=== PATIENT | male | born 1970 | race African-American/Black ===

== ENCOUNTER 2018-11-16 20:49 | Emergency (ER) | payer OTHER ==
[~2018-11-16] VITALS: Ht 185.4 cm; Wt 86.2 kg
--- NOTE | 2018-11-16 21:35 | NUR ---
Patient discharged to home in stable conditon. Written and verbal after care instructions given. Patient verbalizes understanding of instructions.
[2018-11-16 21:42] VITALS: BP 114/78
== END 2018-11-16 21:50 | disposition home or self-care (01) ==
LOC: ER 20:49
DX: H60.92 Unspecified otitis externa, left ear (principal)
CPT/HCPCS: A4663